=== PATIENT | male | born 1980 | race Caucasian/White ===

== ENCOUNTER 2020-12-14 15:49 | Emergency (ER) | payer OTHER, SELFPAY ==
--- NOTE | ~2020-12-14 | XR_ITS ---
EXAMINATION: XR shoulder LT min 2V INDICATION: Left shoulder pain TECHNIQUE: Four views of the left shoulder are submitted. COMPARISON: None FINDINGS: Normal alignment. No fracture. Glenohumeral and acromioclavicular joint spaces are normal. Soft tissues are unremarkable. IMPRESSION: 1. No acute osseous abnormality. Reviewed, dictated and finalized at location A.
--- NOTE | 2020-12-14 15:52 | ED.GENADULT ---
HPI - General Adult General Chief complaint: Extremity Injury, Upper Stated complaint: left shoulder pain Time Seen by Provider: 12/14/20 16:20 Source: patient and RN notes reviewed Mode of arrival: ambulatory Limitations: no limitations History of Present Illness HPI narrative: 40-year-old male presents with concern for left shoulder pain. Reports he has had left shoulder pain for a long time . 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 Reports pain with range of motion. Reports the pain feels like it is inside his shoulder . He denies chest pain, shortness of breath. He denies redness or swelling in any area. He denies intervention. MD complaint: Shoulder pain Related Data Allergies Allergy/AdvReac Type Severity Reaction Status Date / Time No Known Allergies Allergy Mild Verified 12/14/20 16:28 Review of Systems Review of Systems: Narrative: CONSTITUTIONAL: Denies malaise, chills, sweats, or fever. CARDIOVASCULAR: Denies chest pain, palpitations, or edema. RESPIRATORY: Denies cough or dyspnea. GASTROINTESTINAL: Denies abdominal pain, nausea, vomiting SKIN: Denies bruising, swelling, redness MUSCULOSKELETAL: Reports left shoulder pain NEUROLOGIC: Denies numbness, weakness All systems reviewed & are unremarkable except as noted in HPI and below PMFSH Comments At time of signature, agree with nursing past medical, surgical, social and family history. There is no relevant family history pertinent to the presenting complaint Exam Narrative: Exam Narrative: GENERAL: Well-appearing, well-nourished, and in no acute distress. HEAD: Normocephalic, atraumatic. EYES: PERRLA, conjunctivae clear NECK: Supple. CHEST: Speaks in full sentences. No respiratory distress. HEART: Regular rate and rhythm. Normal and equal peripheral pulses. EXTREMITIES: Left shoulder has normal strength and sensation, normal range of motion. No edema or ecchymosis. 5/5 strength with shoulder abduction, abduction, flexion and extension. Normal sensation with sensitivity to light touch and pain. No point tenderness. No open wounds, no skin tenting, no devitalized tissue or atrophy, no trophic changes, no obvious deformity, alignment normal, nearby joints and structures intact. Distal pulses palpable and equal bilaterally, skin warm, dry, pink. Capillary refill less than 3 seconds. SKIN: Warm, dry, no rash. NEURO: Alert and oriented x3. PSYCH: Normal mood and affect Course Course Emergency Course: Patient is aware of diagnosis, understands and agrees to treatment plan. Anticipatory guidance given. Patient agrees to follow-up as directed and is aware of reasons to seek care at the emergency department. Portions of this record may have been created with voice recognition software Vital Signs Vital signs: Vital Signs Temperature 98.1 F 12/14/20 16:05 Pulse Rate 68 12/14/20 16:05 Respiratory Rate 20 12/14/20 16:05 Blood Pressure 139/87 12/14/20 16:05 Pulse Oximetry 100 12/14/20 16:05 Temperature 98.1 F 12/14/20 16:05 Pulse Rate 68 12/14/20 16:05 Respiratory Rate 20 12/14/20 16:05 Blood Pressure 139/87 12/14/20 16:05 Pulse Oximetry 100 12/14/20 16:05 Reviewed. Medical Decision Making MDM Narrative Medical decision making narrative: Patients pain is consistent with musculoskeletal etiology. No signs of neurological or vascular compromise on exam. Compartments and tissues are soft without signs of compartment syndrome. Pain is felt appropriate for further evaluation on an outpatient basis. Vital Signs Vital Signs: Vital Signs Temperature 98.1 F 12/14/20 16:05 Pulse Rate 68 12/14/20 16:05 Respiratory Rate 20 12/14/20 16:05 Blood Pressure 139/87 12/14/20 16:05 Pulse Oximetry 100 12/14/20 16:05 Temperature 98.1 F 12/14/20 16:05 Pulse Rate 68 12/14/20 16:05 Respiratory Rate 20 12/14/20 16:05 Blood Pressure 13
[2020-12-14 16:05] VITALS: BP 139/87; PULSE 68; RESP 20; TEMP 36.7; O2SAT 100
== END 2020-12-14 17:00 | disposition home or self-care (01) ==
PROVIDERS: Emergency Provider Nurse Practitioner
DX: M25.512 Pain in left shoulder (principal)
CPT/HCPCS: 73030; 99213; G0463

== ENCOUNTER 2021-03-31 10:23 | Emergency (ER) | payer OTHER, SELFPAY ==
[2021-03-31 10:34] VITALS: BP 127/86; PULSE 86; RESP 20; TEMP 37.1; O2SAT 100
[2021-03-31] MEDS: TETANUS,DIPHTHERIA,AC PERTUSSIS ADULT (0.5 ML) BOOSTRIX IM (10:45)
--- NOTE | 2021-03-31 10:47 | ED.WOUNDLAC ---
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 Patient states that his tetanus is not up to date. He states that he is right hand dominant. Patient reports that he cleansed his finger and applied antibiotic ointment and bandage prior to arrival to clinic. Circulation, sensation and mobility intact to his right third finger. Onset (ago): hour(s) (30 minutes prior to arrival) Extremity Location: Right: hand (third finger) Related Data Allergies Allergy/AdvReac Type Severity Reaction Status Date / Time No Known Allergies Allergy Mild Verified 12/14/20 16:28 Review of Systems Review of Systems: CONSTITUTIONAL: Denies fever, chills, or sweats. EYES: Denies visual changes, redness, or discharge. ENT: Denies rhinorrhea, congestion, sore throat, or otalgia. CARDIOVASCULAR: Denies chest pain, palpitations, or edema. RESPIRATORY: Denies cough or dyspnea. GASTROINTESTINAL: Denies abdominal pain, nausea, vomiting, or diarrhea. GENITOURINARY: Denies dysuria or hematuria. SKIN: Denies rash or itching.Laceration to the distal 3rd finger of his right hand at fat pad region. MUSCULOSKELETAL: Denies back pain, joint pain, or myalgia. NEUROLOGIC: Denies headache, numbness, or weakness. PSYCHIATRIC: Denies anxiety or depression. All systems reviewed & are unremarkable except as noted in HPI and below PMFSH Past Medical History Medical History (Updated 04/07/21 @ 14:56 by Leslie Acuña NP) No significant past medical history Surgical History Surgical History (Updated 04/07/21 @ 14:53 by Leslie Acuña NP) No history of previous surgery Family History Family History (Updated 04/07/21 @ 14:54 by Leslie Acuña NP) Grandparent Diabetes mellitus Ovarian cancer Social History Social History (Updated 04/07/21 @ 14:55 by Leslie Acuña NP) Smoking status: Never smoker Alcohol intake: current Alcohol use details: rare social Substance use: never Living arrangements: with family Gender identity (if verbalized by the patient): Male Comments At time of signature, agree with nursing past medical, surgical, social and family history. There is no relevant family history pertinent to the presenting complaint Exam Narrative: GENERAL: Well-appearing, well-nourished, and in no acute distress. HEAD: Normocephalic, atraumatic. EYES: PERRLA and EOMI. ENT: Nares clear, no rhinorrhea or epistaxis. Mucous membranes moist. NECK: Supple. CHEST: Clear to auscultation. No respiratory distress. HEART: Regular rate and rhythm. No murmur heard. Normal peripheral pulses. ABDOMEN: Soft, nontender, nondistended, normal active bowel sounds. EXTREMITIES: Normal range of motion. No edema. SKIN: Warm, dry, no rash. NEURO: No focal deficits. Alert and oriented x3. Course Vital Signs Vital signs: Vital Signs Temperature 37.1 C 03/31/21 10:34 Pulse Rate 86 03/31/21 10:34 Respiratory Rate 20 03/31/21 10:34 Blood Pressure 127/86 03/31/21 10:34 Pulse Oximetry 100 03/31/21 10:34 Temperature 37.1 C 03/31/21 10:34 Pulse Rate 86 03/31/21 10:34 Respiratory Rate 20 03/31/21 10:34 Blood Pressure 127/86 03/31/21 10:34 Pulse Oximetry 100 03/31/21 10:34 Procedures Laceration right 3rd finger: Date: 03/31/21 Time: 11:05 Site: hand (distal third finger huerta aspect) Side (If applicable): right Size (cm): 1.5 Description: flap and contaminated Depth: simple, single laye
== END 2021-03-31 11:40 | disposition home or self-care (01) ==
PROVIDERS: Emergency Provider Registered Nurse
DX: S61.212A Laceration without foreign body of right middle finger without damage to nail, initial encounter (principal); W45.8XXA Other foreign body or object entering through skin, initial encounter; Y99.0 Civilian activity done for income or pay; Z23 Encounter for immunization
CPT/HCPCS: 12001; 90471; 90715; 99213; G0463